=== PATIENT | male | born 1955 | race Caucasian/White ===

== ENCOUNTER 2020-01-19 08:18 | Outpatient (CLI) | payer OTHER, SELFPAY ==
--- NOTE | 2020-01-19 08:45 | USCV_ITS ---
Shabbir Diaz Age: 64 Gender: M : 1955 Exam Date: 01/19/2020 08:47 Ordering Phys: Janae Avalos MD ([email or web address]) Technologist: Igor Moreno Exam Location: [facility] – [place] Indication: PALP BP: 135 / 89 HR: 84 Rhythm: PALP Technical Quality: Fair MEASUREMENTS (Male / Female) Normal Values 2D ECHO LV Diastolic Diameter PLAX 4.8 cm 4.2 - 5.9 / 3.9 - 5.3 cm LV Systolic Diameter PLAX 2.8 cm IVS Diastolic Thickness 0.9 cm 0.6 - 1.0 / 0.6 - 0.9 cm IVS Systolic Thickness 1.3 cm LVPW Diastolic Thickness 1.1 cm 0.6 - 1.0 / 0.6 - 0.9 cm LVPW Systolic Thickness 1.1 cm LVOT Diameter 2.0 cm LV Ejection Fraction 2D Teich 73.1 % LA Diameter 4.9 cm LA Width 3.8 cm LA Height 4.6 cm RA Width 4.2 cm RA Height 4.7 cm Aorta at Sinotubular Diameter 2.8 cm M-MODE LV Diastolic Diameter MM 4.6 cm 4.2 - 5.9 / 3.9 - 5.3 cm LV Systolic Diameter MM 2.9 cm LV Ejection Fraction MM Teich 66.5 % IVS Diastolic Thickness MM 1.1 cm 0.6 - 1.0 / 0.6 - 0.9 cm IVS Systolic Thickness MM 1.7 cm LVPW Diastolic Thickness MM 1.2 cm 0.6 - 1.0 / 0.6 - 0.9 cm LVPW Systolic Thickness MM 2.0 cm RV Diastolic Diameter MM 2.6 cm Aortic Annulus Diameter 3.2 cm LA Ao Ratio MM 1.6 MV E Point Septal Separation 0.5 cm DOPPLER AV Peak Velocity 246.0 cm/s LVOT Peak Velocity 104.0 cm/s AV Area Cont Eq vti 1.1 cm squared AV Area Cont Eq pk 1.4 cm squared MV Area PHT 5.0 cm squared Mitral E to A Ratio 0.9 MV E' Velocity 13.0 cm/s Mitral E to MV E' Ratio 9.2 Mitral E to LV E' Lateral Ratio 8.1 Mitral E to LV E' Septal Ratio 10.7 TR Peak Velocity 231.0 cm/s TR Peak Gradient 21.4 mmHg TV Peak E Velocity 132.0 cm/s Right Atrial Pressure 3.0 mmHg Pulmonary Artery Systolic Pressu 24.3 mmHg PV Peak Velocity 111.0 cm/s FINDINGS Left Ventricle Normal left ventricular cavity size. Normal left ventricular systolic function. No regional wall motion abnormalities. Left ventricular ejection fraction is estimated at 66 %. Grade I/IV diastolic dysfunction (abnormal relaxation filling pattern), normal to mildly elevated filling pressures. Right Ventricle The right ventricle is normal in size and function. Right Atrium The right atrium is normal in size. Left Atrium The left atrium is normal in size. Mitral Valve Mildly thickened mitral valve. No mitral valve stenosis. Mild mitral valve regurgitation. Aortic Valve Mild aortic valve calcification. No aortic valve stenosis. Trace aortic valve regurgitation. Tricuspid Valve Structurally normal tricuspid valve without significant stenosis or regurgitation. Pulmonary artery systolic pressure is normal. Pulmonic Valve Structurally normal pulmonic valve without significant stenosis. There is no pulmonic regurgitation. Pericardium Normal pericardium without effusion. Aorta Normal ascending aorta dimension. CONCLUSIONS 1-Normal left ventricular cavity size. Normal left ventricular systolic function. No regional wall motion abnormalities. Left ventricular ejection fraction is estimated at 66 %. Grade I/IV diastolic dysfunction (abnormal relaxation filling pattern), normal to mildly elevated filling pressures. 2-Mildly thickened mitral valve. No mitral valve stenosis. Mild mitral valve regurgitation. 3-Mild aortic valve calcification. No aortic valve stenosis. Trace aortic valve regurgitation. 4-There is no pericardial effusion. 5-Pulmonary artery systolic pressure is within normal limits. 6-There are no prior echocardiogram studies to compare. Janae Avalos MD (Electronically Signed) Final Date: 20 January 2020 18:48 S
== END 2020-01-19 08:19 | disposition home or self-care (01) ==
PROVIDERS: PCP Family Medicine; Visit Provider Internal Medicine Cardiovascular Disease
DX: R00.2 Palpitations (principal); I08.0 Rheumatic disorders of both mitral and aortic valves
CPT/HCPCS: 93306

== ENCOUNTER → 2020-03-24 15:47 | Outpatient (BNVA) | payer MEDICARE, SELFPAY | PROVIDERS: PCP Family Medicine; Visit Provider Nurse Practitioner Family | DX: R00.2 Palpitations (principal) | CPT/HCPCS: 80048; 83036; 83735; 85025 ==